=== PATIENT | female | born 1990 | race American Indian/Alaskan Native ===

== ENCOUNTER 2017-08-03 18:31 | Emergency (ER) | payer SELFPAY ==
[2017-08-03 18:43] VITALS: BP 136/89
[2017-08-03 19:14] LABS: Basophils % (Auto) 0.5 % (0.0-1.8); Eosinophils % (Auto) 0.9 % (0.0-4.3); Hematocrit 35.6 % (30.3-42.9); Hemoglobin 12.2 gm/dl (10.1-14.3); Mean Corpuscular HGB Conc 34 % (30-34); Mean Corpuscular Hemoglobin 33 pg (28-32); Mean Corpuscular Volume 98 fl (79-97); Platelet Count 203 K/mm3 (140-440); Red Blood Count 3.65 M/mm3 (3.65-5.03); Red Cell Distribution Width 13.1 % (13.2-15.2)
[2017-08-03 19:27] LABS: INR 0.95 (0.87-1.13)
[2017-08-03 19:36] LABS: Alanine Aminotransferase 9 units/L (7-56); Albumin 4.1 g/dL (3.9-5); Albumin/Globulin Ratio 1.2 %; Anion Gap 14 mmol/L; BUN/Creatinine Ratio 18; Blood Urea Nitrogen 16 mg/dL (7-17); Carbon Dioxide 28 mmol/L (22-30); Chloride 100.8 mmol/L (98-107); Glucose 86 mg/dL (65-100); Potassium 3.7 mmol/L (3.6-5.0); Sodium 139 mmol/L (137-145); Total Protein 7.4 g/dL (6.3-8.2)
[2017-08-03 20:48] LABS: Alkaline Phosphatase 72 units/L (35-129)
== END 2017-08-03 19:30 | disposition left against medical advice (07) ==
LOC: ED 18:31
DX: M79.673 Pain in unspecified foot (principal); Z53.21 Procedure and treatment not carried out due to patient leaving prior to being seen by health care provider
CPT/HCPCS: 36415; 80053; 84484; 84703; 85025; 85610

== ENCOUNTER 2017-09-09 12:31 | Emergency (ER) | payer MEDICAID ==
[2017-09-09 12:55] VITALS: BP 165/113
--- NOTE | 2017-09-09 13:07 | Emergency Department Report ---
Chief Complaint: Abdominal Pain Stated Complaint: ANXIETY - HPI History of Present Illness: This is a 27-year-old female nontoxic, well nourished in appearance, no acute signs of distress presents to the ED with c/o of pelvic pain, dizziness, and weakness x5 months. Patient deneis following up with a PCP. Patient describes pain as aching with level of 8/10. Denies any vaginal bleeding, chest pain, shortness of breathe, fever, chills, depression, headache, stiff neck, vaginal discharge. - Exam Vital Signs: Vital Signs 09/09/17 12:47 Temperature 97 F L Pulse Rate 79 Blood Pressure 165/113 O2 Sat by Pulse 100 Oximetry Physical Exam: GENERAL: The patient is a well-developed, well-nourished female in no apparent distress. Patient is alert and acting appropriately for age. Alert and oriented 3, no apparent distress, normal gait, atraumatic. ABDOMEN: Soft, nontender, and nondistended. Positive bowel sounds. No hepatosplenomegaly was noted. No guarding or rebound tenderness, negative epigastric bruit. Negative psoas sign, negative rivera sign, negative McBurneys sign EXTREMITIES: Without any cyanosis, clubbing, rash, lesions or edema. Peripheral pulses intact. Capillary refill less than 2 seconds. Full range of motion bilaterally. NEUROLOGIC: Cranial nerves II through XII are grossly intact. Alert and oriented x 3. Normal gait. Symmetrical strength and sensation. Reflexes 2+ throughout. Cerebellar testing normal. GCS score of 15. PSYCHIATRIC: Flat affect with no suicidal or homicidal ideations. MSE screening note: Focused history and physical exam performed. Due to findings the following was ordered: 1- This initial assessment/diagnostic orders/clinical plan/ treatment(s) is/are subject to change based on pt's health status, clinical progression and re- assessment by fellow clinical providers in the ED. Further treatment and workup at subsequent clinical provers discretion. Patient/guardians urged not to elope from ED as their condition may be serious if not clinically assessed and managed. 2-CBC, CMP, lipase, amylase, UA, 3-EtOH/urine drug panel ED Disposition for MSE Condition: Stable Instructions: Abdominal Pain (ED)
[2017-09-09 13:25] LABS: Basophils % (Auto) 0.5 % (0.0-1.8); Eosinophils % (Auto) 0.6 % (0.0-4.3); Hematocrit 39.8 % (30.3-42.9); Hemoglobin 13.2 gm/dl (10.1-14.3); Mean Corpuscular HGB Conc 33 % (30-34); Mean Corpuscular Hemoglobin 33 pg (28-32); Mean Corpuscular Volume 99 fl (79-97); Platelet Count 208 K/mm3 (140-440); Red Blood Count 4.03 M/mm3 (3.65-5.03); Red Cell Distribution Width 12.8 % (13.2-15.2); White Blood Count 8.3 K/mm3 (4.5-11.0)
[2017-09-09 13:43] LABS: Alanine Aminotransferase 11 units/L (7-56); Albumin 4.6 g/dL (3.9-5); Alkaline Phosphatase 70 units/L (35-129); Anion Gap 15 mmol/L; BUN/Creatinine Ratio 15; Blood Urea Nitrogen 9 mg/dL (7-17); Calcium 9.3 mg/dL (8.4-10.2); Carbon Dioxide 27 mmol/L (22-30); Chloride 98.6 mmol/L (98-107); Glucose 83 mg/dL (65-100); Potassium 3.5 mmol/L (3.6-5.0); Sodium 137 mmol/L (137-145); Total Protein 9.3 g/dL (6.3-8.2)
== END 2017-09-09 21:40 | disposition left against medical advice (07) ==
LOC: ED 12:31
DX: F41.9 Anxiety disorder, unspecified (principal); Z53.21 Procedure and treatment not carried out due to patient leaving prior to being seen by health care provider
CPT/HCPCS: 36415; 80053; 84703; 85025; G0480; 80320

== ENCOUNTER 2018-02-26 14:09 | Emergency (ER) | payer MEDICAID ==
[2018-02-26 14:28] VITALS: BP 127/90
[2018-02-26] MEDS ORDERED: DECADRON IV ONE (16:58)
[2018-02-26] MEDS ORDERED: ATARAX PO ONE (16:58)
--- NOTE | 2018-02-26 16:58 | Emergency Department Report ---
ED Rash HPI - HPI Chief Complaint: Skin Rash Stated Complaint: RASH ON CHEST/ARM Time Seen by Provider: 02/26/18 16:38 Duration: 2 weeks Location: Chest, Upper Extremities Suspected Cause: Unknown Rash Symptoms: Yes Itching, Yes Peeling, No Facial Swelling, No Tongue/Oral Swelling, No Breathing Difficulties, No Choking Sensation, No Wheezing/Dyspnea, No Blistering, No Fever, No Lightheaded, No Malaise, No Myalgias Severity: moderate Other History: 27-year-old female states that she's been having this itching rash for the past 2 weeks. Patient states that prior studies smaller but it spread from her chest and also on her arm. Patient states that the rash is itchy. 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 Patient states she does not recall coming into contact or eating any foreign or unknown. She states she is not allergic to any medication and is currently not on any medications. Patient states that her penicillin allergy is not sure allergy as she has had amoxicillin a couple of times with no reaction. ED Review of Systems ROS: Stated complaint: RASH ON CHEST/ARM Other details as noted in HPI Constitutional: denies: chills, fever Eyes: denies: eye pain, eye discharge, vision change ENT: denies: ear pain, throat pain Respiratory: denies: cough, shortness of breath, wheezing Cardiovascular: denies: chest pain, palpitations Endocrine: no symptoms reported Gastrointestinal: denies: abdominal pain, nausea, diarrhea Genitourinary: denies: urgency, dysuria, discharge Musculoskeletal: denies: back pain, joint swelling, arthralgia Skin: rash, pruritus. 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 She has this as much as twice a year. She states that she has genital herpes as well. She has never been to a neurologist. She states he's never had a CAT scan of her head. History of boils I am assuming this is MRSA no current boils per the patient. - Surgical History Past Surgical History?: No - Social History Smoking Status: Current Every Day Smoker Substance Use Type: None, Marijuana - Medications Home Medications: Home Medications Medication Instructions Recorded Confirmed Last Taken Type ALBUTEROL Inhaler [Proair] 2 puff IH QID PRN #1 inhalation 09/26/16 Unknown Rx Azithromycin [Zithromax Z-CAROL] 250 mg PO DAILY #6 tab 09/26/16 Unknown Rx Ibuprofen [Motrin] 600 mg PO Q8H PRN #15 tablet 09/26/16 Unknown Rx guaiFENesin DM [Robitussin Dm] 10 ml PO Q6HR PRN #200 ml 09/26/16 Unknown Rx predniSONE [Deltasone] 50 mg PO QDAY #5 tablet 09/26/16 Unknown Rx Cephalexin [Keflex] 500 mg PO Q12HR #10 cap 02/26/18 Unknown Rx Hydrocortisone 0.5% (Nf) 1 applicatio TP TID #1 tube 02/26/18 Unknown Rx [Hydrocortisone 0.5% OINT] hydrOXYzine HCL [Atarax] 25 mg PO QHS #20 tablet 02/26/18 Unknown Rx Rash Exam - Exam General: Vital signs noted. No distress. Alert and acting appropriately. HEENT: No Periorbital Edema, No Conjuctival Injection, No Chemosis, No Perioral Edema, No Tongue Edema, No Uvular Edema, No Compromised Airway, No Drooling Lungs: Yes Good Air Exchange, No Wheezes, No Ronchi, No Stridor, No Cough, No Labored Respirations, No Retractions, No Use of Accessory Muscles, No Other Abnormal Lung Sounds Heart: Yes Regular, No Murmur Front/Back of Body, Lg (Color): 1 - multiple, scattered, erythematous, generalized maculopaular rash with some scabs from itching, 2 - multiple, scattered, erythematous, generalized maculopaular rash with some scabs from itching, no swelling Skin: Yes Urticarial Rash, Yes Maculopapular Rash, Yes Erythema, Yes Other ( scabbing from itching), No Morbilliform rash, No Bulla(e), No Excoriations, No Weeping, No Tenderness, No Edema, No Encrustations Other: Positive: Abdomen Normal, Neurologic Normal, Musculoskeletal Normal ED Course Vital Signs 02/26/18 14:24 Temperature 98.7 F Pulse Rate 78 Respiratory 18 Rate Blood Pressure 127/90 O2 Sat by Pulse 98 Oximetry ED Medical Decision Making - Medical Decision Making 27-year-old female presents with rash ED course: Rash could be a contact or allergic. Due to scratching a scab and will cover with Keflex antibiotics. Patient received Atarax and Decadron ED. Discussed with patient to follow up with primary care physici 3-5 days. Discussed his symptoms is not resolved t see licensed esthetician as referred. Patient is in no acute or respiratory distress. Critical care attestation.: If time is entered above; I have spent that time in minutes in the direct care of this critically ill patient, excluding procedure time. ED Disposition Clinical Impression: Dermatitis, Rash and nonspecific skin eruption Disposition: - TO HOME OR SELFCARE Is pt being admited?: No Does the pt Need Aspirin: No Condition: Stable Instructions: Acute Rash (ED), Urticaria (ED), Poison Celena (ED), Contact Dermatitis (ED) Additional Instructions: Make sure to follow up with the primary care physician as discussed. Follow-up with licensed esthetician if symptoms persist after treatment Take all your medications as you've been prescribed. If you have any worsening symptoms or develop new symptoms please return to ED immediately. Prescriptions: hydrOXYzine HCL [Atarax] 25 mg PO QHS #20 tablet Cephalexin [Keflex] 500 mg PO Q12HR #10 cap Hydrocortisone 0.5% (Nf) [Hydrocortisone 0.5% OINT] 1 applicatio TP TID #1 tube Referrals: PRIMARY CAREMD [Primary Care Provider] - 3-5 Days ELAINE PEACE MD [Staff Physician] - 3-5 Days [facility] [Outside] - 3-5 Days [facility] [Outside] - 3-5 Days Forms: Accompanied Note, Work/School Release Form(ED) Time of Disposition: 17:21
== END 2018-02-26 18:01 | disposition home or self-care (01) ==
LOC: ED 14:09
DX: L30.9 Dermatitis, unspecified (principal); I10 Essential (primary) hypertension; F17.200 Nicotine dependence, unspecified, uncomplicated; F12.10 Cannabis abuse, uncomplicated
CPT/HCPCS: 96374; 99282; J1100

== ENCOUNTER 2018-12-23 17:06 | Outpatient (CLI) | payer MEDICAID ==
[2018-12-23 17:29] VITALS: BP 113/59
[2018-12-23] MEDS ORDERED: CELESTONE SOLUSPAN IM SCH (18:00)
--- NOTE | 2018-12-23 21:56 | Ultrasound Report ---
PROCEDURE: US OB BPP WO NON-STRESS TECHNIQUE: PROCEDURE: US OB BPP WO NON-STRESS HISTORY: Variable Decel COMPARISONS: None . FINDINGS: FETUS Amniotic fluid volume Normal-score 2. At least one vertical pocket >2 cm or more in vertical axis . breathing: Normal-score 2 . movement: Normal-score 2 . tone: Normal-score 2 . Score: 8 of 8 . IMPRESSION: Normal biophysical profile . This document is electronically signed by Kehined Morales MD., December 23 2018 09:55:07 PM ET
--- NOTE | 2018-12-23 22:03 | Ultrasound Report ---
PROCEDURE: US OB LIMITED TECHNIQUE: Real-time limited sonographic examination was performed for evaluation of for each fetus with image documentation (1 or more fetuses). HISTORY: Variable Decel COMPARISONS: None . FINDINGS: There is a single intrauterine gestation with a heart rate of 143 bpm. Presentation is cephalic . Amniotic fluid index is 24.6 cm. IMPRESSION: Amniotic fluid index is at the upper limit of normal. This document is electronically signed by Kehinde Morales MD., December 23 2018 10:01:37 PM ET
== END 2018-12-23 19:56 | disposition home or self-care (01) ==
LOC: TRG 17:06
PROVIDERS: ATTEND Obstetrics & Gynecology
DX: O47.03 False labor before 37 completed weeks of gestation, third trimester (principal); O99.343 Other mental disorders complicating pregnancy, third trimester; F41.9 Anxiety disorder, unspecified; O99.323 Drug use complicating pregnancy, third trimester; F11.90 Opioid use, unspecified, uncomplicated; F12.90 Cannabis use, unspecified, uncomplicated; O99.333 Smoking (tobacco) complicating pregnancy, third trimester; F17.200 Nicotine dependence, unspecified, uncomplicated; Z3A.30 30 weeks gestation of pregnancy
CPT/HCPCS: 59025; 76815; 76819; 96372; J0702

== ENCOUNTER 2018-12-24 18:13 | Outpatient (CLI) | payer MEDICAID ==
[2018-12-24] MEDS ORDERED: CELESTONE SOLUSPAN IM ONE ×2 (18:31)
[2018-12-24] MEDS ORDERED: PITOCin/NS 30 UNIT/500ML 30,000 MILLIUNITS/500 ML BAG IV ONE (18:41)
== END 2018-12-24 18:50 | disposition home or self-care (01) ==
LOC: TRG 18:13
PROVIDERS: ATTEND Obstetrics & Gynecology
DX: O47.03 False labor before 37 completed weeks of gestation, third trimester (principal); O99.323 Drug use complicating pregnancy, third trimester; F11.90 Opioid use, unspecified, uncomplicated; F14.90 Cocaine use, unspecified, uncomplicated; F12.90 Cannabis use, unspecified, uncomplicated; O99.343 Other mental disorders complicating pregnancy, third trimester; F41.9 Anxiety disorder, unspecified; O99.333 Smoking (tobacco) complicating pregnancy, third trimester; F17.200 Nicotine dependence, unspecified, uncomplicated; Z3A.30 30 weeks gestation of pregnancy
CPT/HCPCS: 96372; J0702; J2590

== ENCOUNTER 2019-02-15 21:59 | Outpatient (CLI) | payer MEDICAID ==
[2019-02-15 22:22] VITALS: BP 135/78
[2019-02-15 22:51] LABS: Bacteria,Urine 1+ /HPF (Negative); Bilirubin,Urine NEG (Negative); Blood,Urine MOD (Negative); Color,Urine Amber (Yellow); Mucus,Urine 3+ /HPF
== END 2019-02-16 | disposition home or self-care (01) ==
LOC: TRG 21:59
PROVIDERS: ATTEND Obstetrics & Gynecology
DX: O47.1 False labor at or after 37 completed weeks of gestation (principal); Z3A.38 38 weeks gestation of pregnancy
CPT/HCPCS: 59025; 81001

== ENCOUNTER 2019-02-22 10:00 | Inpatient (IN) | payer MEDICAID ==
--- NOTE | 2019-02-22 13:44 | Ultrasound Report ---
ULTRASOUND OB LIMITED History: Check fluids Technique: Transabdominal ultrasound with Doppler interrogation. Gestation: Single Position: Cephalic Amniotic Fluid: Normal [place] = 11.8 cm Heart Rate: 130 BPM
[2019-02-22] MEDS ORDERED: MINERAL OIL PO PRN (14:32)
[2019-02-22] MEDS ORDERED: BRETHINE SUB-Q PRN (14:32)
[2019-02-22] MEDS ORDERED: BRETHINE IVP PRN (14:32)
[2019-02-22] MEDS ORDERED: LACTATED RINGERS 1,000 ML IV SCH (15:00)
[2019-02-22] MEDS ORDERED: PITOCin/NS 30 UNIT/500ML 30 UNITS/500 ML BAG IV SCH (15:00)
[2019-02-22] MEDS ORDERED: XYLOCAINE 2% INFILTRATI ONE (15:32)
[2019-02-22 15:40] LABS: Bilirubin,Urine NEG (Negative); Blood,Urine NEG (Negative); Color,Urine Yellow (Yellow); Mucus,Urine FEW /HPF; Protein,Urine <15 mg/dL mg/dL (Negative); Urobilinogen,Urine < 2.0 mg/dL (<2.0)
[2019-02-22 16:18] LABS: Hematocrit 31.1 % (30.3-42.9); Hemoglobin 10.9 gm/dl (10.1-14.3); Mean Corpuscular HGB Conc 35 % (30-34); Mean Corpuscular Volume 100 fl (79-97); Platelet Count 241 K/mm3 (140-440); Red Blood Count 3.12 M/mm3 (3.65-5.03); Red Cell Distribution Width 13.9 % (13.2-15.2)
[2019-02-22] MEDS: STADOL IV PRN ×2 (17:06→19:29)
[2019-02-22 17:11] LABS: Amphetamine Screen,Urine PRESUMPTIVE NEGATIVE; Benzodiazepines Screen,Urine PRESUMPTIVE NEGATIVE; Cannabinoid Screen,Urine PRESUMPTIVE NEGATIVE; Cocaine Screen,Urine PRESUMPTIVE NEGATIVE; Methadone Screen,Urine PRESUMPTIVE NEGATIVE; Opiate Screen,Urine PRESUMPTIVE NEGATIVE
[2019-02-22] MEDS ORDERED: MARCAINE 0.25% INFILTRATI ONE (17:46)
[2019-02-22] MEDS ORDERED: NARCAN 2 MG/2 ML IV PRN (17:47)
[2019-02-22] MEDS ORDERED: fentaNYL-BUPIV 2 MCG/ML-0.125% 200 MCG/100 ML BAG EPIDURAL SCH (18:00)
--- NOTE | 2019-02-22 20:37 | History and Physical Report ---
History of Present Illness Date of examination: 02/22/19 Date of admission: 02/22/19 14:53 Chief complaint: leakage of fluid History of present illness: 28y/o @ 39+0 weeks presents with complaint of leakage of fluid. The patient was adament that her amniotic fluid leaking. The patient is a transfer of care 25 weeks. Her course is complicated by substance abuse of alcohol and cocaine. Her medical history is significant for cardiomegaly. Most recent echocardiogram demonstrated an EF of 60-65% and the left ventricular cavity is normal. Patient is GBS negative. Past History Past Medical History: other (cardiomegaly; depression) Past Surgical History: D&C Social history: single, alcohol abuse, other - Obstetrical History Expected Date of Delivery: 03/01/19 Actual Gestation: 39 Week(s) 0 Day(s) : 6 Para: 2 Hx # Term Pregnancies: 2 Number of Pregnancies: 0 Spontaneous Abortions: 2 Induced : 1 Number of Living Children: 2 Medications and Allergies Allergies Allergy/AdvReac Type Severity Reaction Status Date / Time Penicillins Allergy Intermediate Rash Verified 07/25/18 14:01 amoxicillin Allergy Rash Verified 02/15/19 22:09 Home Medications Medication Instructions Recorded Confirmed Last Taken Type ALBUTEROL Inhaler (OR & NICU) 2 puff IH QID PRN #1 inhalation 09/26/16 Unknown Rx [Proair] Azithromycin [Zithromax Z-CAROL] 250 mg PO DAILY #6 tab 09/26/16 Unknown Rx Ibuprofen [Motrin] 600 mg PO Q8H PRN #15 tablet 09/26/16 Unknown Rx guaiFENesin DM [Robitussin Dm] 10 ml PO Q6HR PRN #200 ml 09/26/16 Unknown Rx predniSONE [Deltasone] 50 mg PO QDAY #5 tablet 09/26/16 Unknown Rx Hydrocortisone 0.5% (Nf) 1 applicatio TP TID #1 tube 02/26/18 Unknown Rx [Hydrocortisone 0.5% OINT] cephALEXin [Keflex] 500 mg PO Q12HR #10 cap 02/26/18 Unknown Rx hydrOXYzine HCL [Atarax] 25 mg PO QHS #20 tablet 02/26/18 Unknown Rx Metoclopramide [Reglan] 10 mg PO TID PRN #30 tab 10/13/18 Unknown Rx Nitrofurantoin Monohyd/M-Cryst 100 mg PO BID #14 capsule 07/25/18 Unknown Rx [Macrobid 100 mg Capsule] Vit Calc,Iron,Folic 1 each PO QDAY #30 tablet 07/25/18 Unknown Rx [ Vitamins] Active Meds: Active Medications Butorphanol Tartrate (Stadol) 2 mg IV Q2H PRN PRN Reason: Pain , Severe (7-10) Last Admin: 02/22/19 19:29 Dose: 2 mg Documented by: Ephedrine Sulfate (Ephedrine Sulfate) 10 mg IV Q2M PRN PRN Reason: Hypotension Oxytocin/Sodium Chloride (Pitocin/Ns 20 Unit/1000ml Drip) 20 units in 1,000 mls @ 125 mls/hr IV DIRECT JOHN Oxytocin/Sodium Chloride (Pitocin/Ns 30 Unit/500ml) 30 units in 500 mls @ 4 mls/hr IV TITR JOHN; Protocol Lactated Ringer's (Lactated Ringers) 1,000 mls @ 125 mls/hr IV DIRECT JOHN Last Admin: 02/22/19 17:05 Dose: 125 mls/hr Documented by: Fentanyl/Bupivacaine/Sodium Chlor (Fentanyl-Bupiv 2 Mcg/Ml-0.125%) 200 mcg in 100 mls @ 12 mls/hr EPIDURAL TITR JOHN; Protocol Mineral Oil (Mineral Oil) 30 ml PO QHS PRN PRN Reason: Constipation Naloxone HCl (Narcan 2 Mg/2 Ml) 0.2 mg IV Q5M PRN PRN Reason: Respiratory sedation Terbutaline Sulfate (Brethine) 0.25 mg SUB-Q ONCE PRN PRN Reason: Hyperstimulation/Hypertonicity Terbutaline Sulfate (Brethine) 0.25 mg IVP ONCE PRN PRN Reason: Hyperstimulation/Hypertonicity Review of Systems All systems: negative Genitourinary: leakage of fluid, contractions - Vital Signs Vital signs: Vital Signs Pulse BP Pulse Ox 75 113/70 99 02/22/19 12:31 02/22/19 12:31 02/22/19 12:31 Temp Pulse Resp BP Pulse Ox 97.6 F 90 18 136/86 100 02/22/19 19:52 02/22/19 20:30 02/22/19 19:52 02/22/19 20:30 02/22/19 20:30 - Physical Exam Breasts: Positive: deferred Cardiovascular: Regular rate Lungs: Positive: Clear to auscultation Results Result Diagrams: 02/22/19 15:59 Abnormal lab results 02/22/19 Range/Units 15:59 RBC 3.12 L (3.65-5.03) M/mm3 MCV 100 H (79-97) fl MCH 35 H (28-32) pg MCHC 35 H (30-34) % All other labs normal. Assessment and Plan - Patient Problems (1) Spontaneous rupture of amniotic membranes Current Visit: Yes Status: Acute Plan to address problem: admit to L&D for augmentation (2) Term Current Visit: Yes Status: Acute
[2019-02-22] MEDS ORDERED: XYLOCAINE 2%/ EPI 1:200,000 INFILTRATI ONE (21:33)
[2019-02-22] MEDS ORDERED: SODIUM CHLORIDE FLUSH SYRINGE 10 ML IV PRN (23:45)
--- NOTE | 2019-02-22 23:50 | Procedure Note ---
OB Delivery Note - Delivery Date of Delivery: 02/22/19 Surgeon: MAKAYLA GUEVARA Estimated blood loss: other (150ml) - Vaginal Delivery presentation: vertex Delivery position: OA Delivery monitor: external FHT Route of delivery: Delivery placenta: spontaneous Delivery cord: 3 umbilical vessels Episiotomy: none Delivery laceration: none Anesthesia: epidural Delivery comments: The patient progressed to complete complete +2 and began pushing. The patient delivered a liveborn female infant with Apgars of 8 and 9 weight 6 lbs. 4 oz. The delivery time was 2338 with delivery of the placenta at 2340. After delivery of the head, the shoulders delivered without difficulty. Infant was then bulb suctioned. The cord was clamped and cut 2 and the infant was placed on the warmer. The placenta delivered spontaneously intact with a three-vessel cord. Estimated blood loss of 150 mL - Infant A at 1 minute: 8 at 5 minutes: 9 Gender: Female (weight 6 lbs. 4 oz.)
[2019-02-22] MEDS ORDERED: LANSINOH TP PRN (23:51)
[2019-02-22] MEDS ORDERED: TYLENOL PO PRN (23:51)
[2019-02-22] MEDS ORDERED: MILK OF MAGNESIA PO PRN (23:51)
[2019-02-22] MEDS ORDERED: DULCOLAX PR PRN (23:51)
[2019-02-22] MEDS ORDERED: BENADRYL PO PRN (23:51)
[2019-02-22] MEDS ORDERED: ZOFRAN IV PRN (23:51)
[2019-02-22] MEDS ORDERED: PHENERGAN PO PRN (23:51)
[2019-02-22] MEDS ORDERED: TUCKS PAD TP PRN (23:51)
[2019-02-22] MEDS: PITOCin/NS 20 UNIT/1000ML DRIP 20 UNITS/1,000 ML BAG IV SCH (23:58)
[2019-02-23] MEDS: NORCO 5/325 PO PRN ×3 (01:36→20:02)
[2019-02-23] MEDS: PITOCin/NS 20 UNIT/1000ML DRIP 20 UNITS/1,000 ML BAG IV SCH (01:42)
[2019-02-23] MEDS: IBUPROFEN PO SCH ×4 (05:31→20:02)
[2019-02-23 12:19] LABS: Hematocrit 33.1 % (30.3-42.9); Hemoglobin 11.2 gm/dl (10.1-14.3)
--- NOTE | 2019-02-23 18:07 | Progress Note ---
Assessment and Plan - Patient Problems (1) Spontaneous rupture of amniotic membranes Current Visit: Yes Status: Acute Plan to address problem: doing well routine care (2) Term Current Visit: Yes Status: Acute Subjective - Subjective Date of service: 02/23/19 Interval history: Patient states pain is controlled. Lochia is decreasing. No significant complaints Patient reports: appetite normal, voiding normally, pain well controlled [place]: doing well Objective - Vital Signs Latest vital signs: Vital Signs Temp Pulse Resp BP BP Pulse Ox 02/23/19 09:35 20 02/23/19 08:52 97.6 F 20 106/76 02/23/19 04:30 98.6 F 88 18 114/73 02/23/19 02:36 18 02/23/19 02:14 99.2 F 89 18 122/75 99 02/23/19 01:36 18 02/23/19 00:37 92 H 165/114 02/23/19 00:22 102 H 125/84 02/23/19 00:06 102 H 100 02/23/19 00:05 97.9 F 103 H 18 122/86 99 02/22/19 23:56 99 H 100 02/22/19 23:51 118 H 99 02/22/19 23:38 130 H 122/86 02/22/19 23:30 77 59 L 02/22/19 23:29 99 H 94 02/22/19 23:25 95 H 48 L 02/22/19 23:21 74 90 02/22/19 23:20 93 H 96 02/22/19 23:15 96 H 99 02/22/19 23:10 97 H 98 02/22/19 23:08 85 115/58 02/22/19 23:05 89 99 02/22/19 23:00 65 90 02/22/19 22:55 79 84 02/22/19 22:50 85 95 02/22/19 22:48 27 L 86 02/22/19 22:45 94 H 18 99 02/22/19 22:40 88 99 02/22/19 22:39 90 96/50 02/22/19 22:35 85 100 02/22/19 22:30 84 99 02/22/19 22:25 89 99 02/22/19 22:20 94 H 99 02/22/19 22:15 91 H 100 02/22/19 22:10 92 H 100 02/22/19 22:05 100 H 112/68 100 02/22/19 22:00 106 H 100 02/22/19 21:55 92 H 99 02/22/19 21:50 102 H 100 02/22/19 21:48 102 H 130/61 02/22/19 21:45 105 H 99 02/22/19 21:44 89 94 02/22/19 21:40 110 H 0 L 02/22/19 21:35 93 H 100 02/22/19 21:33 101 H 128/88 02/22/19 21:30 95 H 100 02/22/19 21:25 86 100 02/22/19 21:20 107 H 98 02/22/19 21:18 89 137/82 02/22/19 21:15 84 100 02/22/19 21:10 94 H 100 02/22/19 21:05 88 100 02/22/19 21:03 99 H 136/81 02/22/19 21:00 93 H 100 02/22/19 20:55 88 99 02/22/19 20:50 104 H 98 02/22/19 20:48 80 130/74 02/22/19 20:45 86 98 02/22/19 20:40 93 H 93 02/22/19 20:35 90 100 02/22/19 20:32 90 139/81 02/22/19 20:30 90 136/86 100 02/22/19 20:29 18 02/22/19 20:28 95 H 134/86 02/22/19 20:26 94 H 132/83 02/22/19 20:25 98 H 100 02/22/19 20:24 88 136/84 02/22/19 20:22 88 149/88 02/22/19 20:20 97 H 100 02/22/19 20:18 82 134/88 02/22/19 20:16 76 163/85 02/22/19 20:14 68 148/65 02/22/19 20:11 88 149/91 02/22/19 20:08 89 142/93 02/22/19 20:07 96 H 99 02/22/19 19:58 100 H 94 02/22/19 19:55 85 164/107 02/22/19 19:54 81 99 02/22/19 19:52 97.6 F 95 H 18 164/104 95 02/22/19 19:49 88 100 02/22/19 19:47 79 80 L 02/22/19 19:44 83 99 02/22/19 19:39 84 100 02/22/19 19:34 82 99 02/22/19 19:30 81 93 02/22/19 19:29 82 18 92 02/22/19 19:24 96 H 99 02/22/19 18:30 98.2 F Intake and Output 02/23/19 02/23/19 02/23/19 06:59 14:59 22:59 Intake Total 216.667 Output Total 500 400 Balance -283.333 -400 Intake: IV 216.667 PITOCin/NS 20 UNIT/1000ML 216.667 DRIP 20 units In 1,000 ml @ 125 mls/hr IV DIRECT JOHN Rx#:[id number] Output: Urine 500 400 Void 500 400 Other: Total, Output Amount 500 400 # Voids Void 1 1 Estimated Blood Loss 150 - Exam Uterus: Present: normal, firm
[2019-02-24] MEDS: NORCO 5/325 PO PRN ×3 (02:09→14:13)
[2019-02-24] MEDS: IBUPROFEN PO SCH ×3 (02:10→14:13)
[2019-02-24 16:39] VITALS: BP 131/88
--- NOTE | 2019-02-24 17:31 | Progress Note ---
Assessment and Plan A: PPD#2 s/p P: Routine care. Discharge today with follow up in [address] Castorena. Subjective - Subjective Date of service: 02/24/19 Principal diagnosis: s/p at term Interval history: Pt without complaints. Patient reports: appetite normal, voiding normally, ambulating normally : doing well Objective - Vital Signs Latest vital signs: Vital Signs Temp Pulse Resp BP BP Pulse Ox 02/24/19 16:16 97.6 F 75 16 131/88 99 02/24/19 08:06 98.3 F 77 18 134/89 100 02/24/19 01:29 98.0 F 76 18 110/66 97 Intake and Output 02/24/19 02/24/19 02/24/19 06:59 14:59 22:59 Intake Total 480 Balance 480 Intake: Oral 480 Other: Total, Intake Amount 120 # Voids Void 1 - Exam Breasts: Present: deferred Cardiovascular: Present: Regular rate Lungs: Present: Clear to auscultation Abdomen: Present: soft Uterus: Present: fundal height below umbilicus Extremities: Present: normal
--- NOTE | 2019-02-24 17:36 | Discharge Summary ---
Providers - Providers Date of Admission: 02/22/19 14:53 Date of discharge: 02/24/19 Attending physician: MAKAYLA GUEVARA Primary care physician: MAKAYLA GUEVARA Hospitalization Reason for admission: rupture of membranes Delivery: Procedure details: Please see delivery note. Episiotomy: none Laceration: none complications: none Discharge diagnosis: IUP at term delivered baby: female Hospital course: course uneventful. Condition at discharge: Stable Disposition: DC-01 TO HOME OR SELFCARE - Discharge Diagnoses (1) Obesity Status: Acute Qualifiers: Obesity type: unspecified obesity type Obesity classification: unspecified obesity classification Serious obesity comorbidity presence: unspecified whether serious comorbidity present Qualified Code(s): E66.9 - Obesity, unspecified (2) Spontaneous rupture of amniotic membranes Status: Acute (3) Term Status: Acute Plan - Discharge Medications Prescriptions: Ibuprofen [Motrin] 800 mg PO Q8HR PRN #30 tablet PRN Reason: Pain, Moderate (4-6) HYDROcodone/APAP 5-325 [Gypsy 5/325] 1 each PO Q6HR PRN #20 tablet PRN Reason: Pain - Provider Discharge Summary Activity: routine, no sex for 6 weeks, no heavy lifting 4 weeks, no strenuous exercise Diet: routine Instructions: routine Additional instructions: [] Smoking cessation referral if applicable(refer to patient education folder for contact #) [] Refer to [facility] Booklet Call your doctor immediately for: * Fever > 100.5 * Heavy vaginal bleeding ( >1 pad per hour) * Severe persistent headache * Shortness of breath * Reddened, hot, painful area to leg or breast * Drainage or odor from incision. * Keep incision clean and dry at all times and follow doctor's instructions regarding bathing/showering - Follow up plan Follow up: KOREY CERDA MD [Staff Physician] - 03/22/19 (Please call to schedule appt )
== END 2019-02-24 19:15 | disposition home or self-care (01) | DRG 775 ==
LOC: TRG 10:00 → LD 14:53 → OB 02-23 02:12
PROVIDERS: ADMIT Obstetrics & Gynecology; ATTEND Obstetrics & Gynecology
PROC: 10E0XZZ Delivery of Products of Conception, External Approach (ICD-10-PCS; principal; 2019-02-22)
PROC: 3E0R3BZ Introduction of Anesthetic Agent into Spinal Canal, Percutaneous Approach (ICD-10-PCS; 2019-02-22)
PROC: 00HU33Z Insertion of Infusion Device into Spinal Canal, Percutaneous Approach (ICD-10-PCS; 2019-02-22)
DX: O99.344 Other mental disorders complicating childbirth (principal); O99.214 Obesity complicating childbirth; E66.9 Obesity, unspecified; F32.9 Major depressive disorder, single episode, unspecified; Z3A.39 39 weeks gestation of pregnancy; Z37.0 Single live birth; Z88.0 Allergy status to penicillin; Z88.1 Allergy status to other antibiotic agents; Z79.899 Other long term (current) drug therapy
CPT/HCPCS: 36415; 76815; 80307; 81001; 85014; 85018; 85027; 86850; 86900; 86901; G0378; J0595; J2590; J7120

== ENCOUNTER 2019-04-04 19:48 | Emergency (ER) | payer MEDICAID ==
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
[2019-04-04] MEDS ORDERED: TYLENOL PO ONE (23:35)
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
[2019-04-05 01:01] LABS: Basophils % (Auto) 0.4 % (0.0-1.8); Eosinophils # (Auto) 0.1 K/mm3 (0.0-0.4); Eosinophils % (Auto) 1.7 % (0.0-4.3); Hemoglobin 10.8 gm/dl (10.1-14.3); Lymphocytes # (Auto) 2.6 K/mm3 (1.2-5.4); Lymphocytes % (Auto) 41.3 % (13.4-35.0); Mean Corpuscular HGB Conc 34 % (30-34); Mean Corpuscular Volume 100 fl (79-97); Monocytes # (Auto) 0.7 K/mm3 (0.0-0.8); Monocytes % (Auto) 11.4 % (0.0-7.3); Platelet Count 247 K/mm3 (140-440); Red Cell Distribution Width 13.2 % (13.2-15.2)
[2019-04-05 01:22] LABS: Alanine Aminotransferase 8 units/L (7-56); Albumin 3.7 g/dL (3.9-5); BUN/Creatinine Ratio 23; Blood Urea Nitrogen 16 mg/dL (7-17); Calcium 8.9 mg/dL (8.4-10.2); Hemolysis Index 2
--- NOTE | 2019-04-05 01:37 | XRay Report ---
PROCEDURE: XR CHEST ROUTINE 2V TECHNIQUE: PA and lateral chest radiographs were obtained. HISTORY: chest pain COMPARISONS: None. FINDINGS: Heart: Normal. Mediastinum/Vessels: Normal. Lungs/Pleural space: Normal. Bony thorax: No acute osseous abnormality. IMPRESSION: Normal examination. This document is electronically signed by Kelli Tracey DO., April 05 2019 01:35:23 AM ET
[2019-04-05 05:06] VITALS: BP 132/77
== END 2019-04-05 11:43 | disposition home or self-care (01) ==
LOC: ED 19:48
DX: M54.42 Lumbago with sciatica, left side (principal); G51.0 Bell's palsy; F17.200 Nicotine dependence, unspecified, uncomplicated; Z79.899 Other long term (current) drug therapy; Z88.1 Allergy status to other antibiotic agents; Z88.0 Allergy status to penicillin
CPT/HCPCS: 36415; 71046; 80053; 83690; 85025

== ENCOUNTER 2019-10-19 13:54 | Emergency (ER) | payer MEDICAID ==
--- NOTE | 2019-10-19 15:45 | Emergency Department Report ---
Blank Doc - Documentation Documentation: 29 Y/O FEMALE OPTED TO BE SEEN AT ANOTHER FACILITY DID NOT WANT TO BE SEEN HERE. SHE WAS URGED TO STAY AND GIVE A HISTORY AND PHYSICAL BUT REFUSED. AAOX 3 ON PHONE DURING OUR BRIEF CONVERSATION ARRANGING TRANSPORTATION TO BE TAKEN TO ANOTHER FACILITY
[2019-10-19 15:49] VITALS: BP 144/96
== END 2019-10-19 15:43 | disposition left against medical advice (07) ==
LOC: ED 13:54
DX: R20.0 Anesthesia of skin (principal); Z53.21 Procedure and treatment not carried out due to patient leaving prior to being seen by health care provider

== ENCOUNTER 2021-01-08 04:25 | Emergency (ER) | payer SELFPAY ==
[2021-01-08 05:01] VITALS: BP 146/104
[2021-01-08 05:57] LABS: Basophils % (Auto) 0.4 % (0.0-1.8); Eosinophils # (Auto) 0.1 K/mm3 (0.0-0.4); Eosinophils % (Auto) 0.8 % (0.0-4.3); Hematocrit 37.6 % (30.3-42.9); Hemoglobin 12.9 gm/dl (10.1-14.3); Lymphocytes # (Auto) 1.7 K/mm3 (1.2-5.4); Lymphocytes % (Auto) 19.5 % (13.4-35.0); Mean Corpuscular HGB Conc 34 % (30-34); Mean Corpuscular Volume 100 fl (79-97); Monocytes # (Auto) 0.7 K/mm3 (0.0-0.8); Monocytes % (Auto) 8.1 % (0.0-7.3); Platelet Count 219 K/mm3 (140-440); Red Blood Count 3.76 M/mm3 (3.65-5.03); Red Cell Distribution Width 13.9 % (13.2-15.2)
[2021-01-08 06:19] LABS: Alanine Aminotransferase 9 units/L (7-56); BUN/Creatinine Ratio 15; Blood Urea Nitrogen 15 mg/dL (7-17); Calcium 8.8 mg/dL (8.4-10.2); Hemolysis Index 3
--- NOTE | 2021-01-08 06:31 | XRay Report ---
CHEST PA AND LATERAL VIEWS INDICATION: chest pain wit SOB. COMPARISON: 04/05/2019 FINDINGS: Support devices: None Heart: Normal and unchanged Lungs/Pleura: No acute pulmonary or pleural findings. IMPRESSION: 1. No active disease and no interval change. Signer Name: Adriel Garcia MD Signed: 01/08/2021 6:26 AM Workstation Name: [id number]
[2021-01-08] MEDS ORDERED: BENZONATATE 100 MG CAP PO ONE (07:26)
--- NOTE | 2021-01-08 07:29 | Emergency Department Report ---
ED General Adult HPI - General Chief complaint: Chest Pain Stated complaint: HUMBERTO/CHEST PAIN Time Seen by Provider: 01/08/21 07:25 Source: patient Mode of arrival: Ambulatory Limitations: No Limitations - History of Present Illness Initial comments: 30-year-old -Congolese female presents to the emergency room complaining of chest pain with shortness of breath nausea vomiting and cough for the last 2 days. Patient states that the chest pain is sharp and stabbing and was intermittent but now constant since she has been coughing. She states coughing makes it chest pain worse. She admits that she has had diarrhea. And right side pain. Her last Covid test was negative on November 02. She does admit to loss of smell and taste. Onset/Timin -: hour(s) Location: chest Radiation: non-radiation Severity scale (0 -10): 6 Quality: stabbing, sharp Consistency: intermittent Improves with: none Worsens with: movement, other (Coughing) Associated Symptoms: cough, nausea/vomiting, shortness of breath, other (Loss of taste and smell). denies: fever/chills - Related Data Previous Rx's Medication Instructions Recorded Last Taken Type Albuterol Mdi (or & Nicu Only) 2 puff IH QID PRN #1 inhalation 09/26/16 Unknown Rx [Proair] Azithromycin [Zithromax Z-CAROL] 250 mg PO DAILY #6 tab 09/26/16 Unknown Rx Ibuprofen [Motrin] 600 mg PO Q8H PRN #15 tablet 09/26/16 Unknown Rx guaiFENesin DM [Robitussin Dm] 10 ml PO Q6HR PRN #200 ml 09/26/16 Unknown Rx predniSONE [Deltasone] 50 mg PO QDAY #5 tablet 09/26/16 Unknown Rx Hydrocortisone 0.5% (Nf) 1 applicatio TP TID #1 tube 02/26/18 Unknown Rx [Hydrocortisone 0.5% OINT] cephALEXin [Keflex] 500 mg PO Q12HR #10 cap 02/26/18 Unknown Rx hydrOXYzine HCL [Atarax] 25 mg PO QHS #20 tablet 02/26/18 Unknown Rx Metoclopramide [Reglan] 10 mg PO TID PRN #30 tab 07/25/18 Unknown Rx Nitrofurantoin Monohyd/M-Cryst 100 mg PO BID #14 capsule 07/25/18 Unknown Rx [Macrobid 100 mg Capsule] Vit Calc,Iron,Folic 1 each PO QDAY #30 tablet 07/25/18 Unknown Rx [ Vitamins] HYDROcodone/APAP 5-325 [[place] 1 each PO Q6HR PRN #20 tablet 02/24/19 Unknown Rx 5/325] Ibuprofen [Motrin] 800 mg PO Q8HR PRN #30 tablet 02/24/19 Unknown Rx Acetaminophen [Mapap] 500 mg PO QID PRN #30 capsule 04/05/19 Unknown Rx Benzonatate [Tessalon Perles] 100 mg PO Q8HR PRN #15 capsule 01/08/21 Unknown Rx Allergies Allergy/AdvReac Type Severity Reaction Status Date / Time Penicillins Allergy Intermediate Rash Verified 07/25/18 14:01 amoxicillin Allergy Rash Verified 02/15/19 22:09 ED Review of Systems ROS: Stated complaint: HUMBERTO/CHEST PAIN Other details as noted in HPI Comment: All other systems reviewed and negative ED Past Medical Hx - Past Medical History Previous Medical History?: Yes Hx Hypertension: No Hx Congestive Heart Failure: No Hx Diabetes: No Hx Deep Vein Thrombosis: No Hx Renal Disease: No Hx Sickle Cell Disease: No Hx Seizures: No Hx Asthma: No Hx COPD: No Hx HIV: No Additional medical history: bells palsy, herpes - Surgical History Past Surgical History?: Yes Additional Surgical History: Ectopic pregancy with Fallopian tube removal - Social History Smoking Status: Current Every Day Smoker - Medications Home Medications: Home Medications Medication Instructions Recorded Confirmed Last Taken Type Albuterol Mdi (or & Nicu Only) 2 puff IH QID PRN #1 inhalation 09/26/16 Unknown Rx [Proair] Azithromycin [Zithromax Z-CAROL] 250 mg PO DAILY #6 tab 09/26/16 Unknown Rx Ibuprofen [Motrin] 600 mg PO Q8H PRN #15 tablet 09/26/16 Unknown Rx guaiFENesin DM [Robitussin Dm] 10 ml PO Q6HR PRN #200 ml 09/26/16 Unknown Rx predniSONE [Deltasone] 50 mg PO QDAY #5 tablet 09/26/16 Unknown Rx Hydrocortisone 0.5% (Nf) 1 applicatio TP TID #1 tube 02/26/18 Unknown Rx [Hydrocortisone 0.5% OINT] cephALEXin [Keflex] 500 mg PO Q12HR #10 cap 02/26/18 Unknown Rx hydrOXYzine HCL [Atarax] 25 mg PO QHS #20 tablet 02/26/18 Unknown Rx Metoclopramide [Reglan] 10 mg PO TID PRN #30 tab 07/25/18 Unknown Rx Nitrofurantoin Monohyd/M-Cryst 100 mg PO BID #14 capsule 07/25/18 Unknown Rx [Macrobid 100 mg Capsule] Vit Calc,Iron,Folic 1 each PO QDAY #30 tablet 07/25/18 Unknown Rx [ Vitamins] HYDROcodone/APAP 5-325 [[place] 1 each PO Q6HR PRN #20 tablet 02/24/19 Unknown Rx 5/325] Ibuprofen [Motrin] 800 mg PO Q8HR PRN #30 tablet 02/24/19 Unknown Rx Acetaminophen [Mapap] 500 mg PO QID PRN #30 capsule 04/05/19 Unknown Rx Benzonatate [Tessalon Perles] 100 mg PO Q8HR PRN #15 capsule 01/08/21 Unknown Rx ED Physical Exam - General Limitations: No Limitations General appearance: alert, in no apparent distress - Head Head exam: Present: atraumatic, normocephalic - Eye Eye exam: Present: normal appearance - ENT ENT exam: Present: normal exam, normal external ear exam - Respiratory Respiratory exam: Absent: respiratory distress, accessory muscle use, decreased breath sounds - Cardiovascular Cardiovascular Exam: Present: regular rate. Absent: systolic murmur, diastolic murmur, rubs, gallop - GI/Abdominal GI/Abdominal exam: Present: soft. Absent: distended, tenderness, guarding - Extremities Exam Extremities exam: Present: normal inspection, full ROM - Back Exam Back exam: Present: normal inspection, full ROM. Absent: tenderness - Neurological Exam Neurological exam: Present: alert, oriented X3 - Psychiatric Psychiatric exam: Present: normal affect, normal mood - Skin Skin exam: Present: warm, dry, intact, normal color. Absent: rash ED Course Vital Signs 01/08/21 04:55 Temperature 99.0 F Pulse Rate 82 Respiratory 18 Rate Blood Pressure 146/104 O2 Sat by Pulse 100 Oximetry ED Medical Decision Making - Lab Data Result diagrams: 01/08/21 05:14 01/08/21 05:14 - EKG Data Rate: normal - Radiology Data Radiology results: report reviewed [facility] [address] [place] [address] XRay Report Signed Patient: BI CORTEZ MR#: [id number] : 1990 Acct:[id number] Age/Sex: 30 / F ADM Date: 01/08/21 Loc: ED Attending Dr: Ordering Physician: VALERIY LESLIE MD Date of Service: 01/08/21 Procedure(s): XR chest routine 2V Accession Number(s): [id number] cc: ED MD MARIAMA Fluoro Time In Minutes: CHEST PA AND LATERAL VIEWS INDICATION: chest pain wit SOB. COMPARISON: 04/05/2019 FINDINGS: Support devices: None Heart: Normal and unchanged Lungs/Pleura: No acute pulmonary or pleural findings. IMPRESSION: 1. No active disease and no interval change. Signer Name: Adriel Garcia MD Signed: 01/08/2021 6:26 AM Workstation Name: [id number] Transcribed By: TM Dictated By: Adriel Garcia MD Electronically Authenticated By: Adriel Garcia MD Signed Date/Time: 01/08/21625 DD/ 4 TD/TT: - Medical Decision Making 30-year-old -Congolese female presents to the emergency room complaining of chest pain with shortness of breath nausea vomiting and cough for the last 2 days. Patient states that the chest pain is sharp and stabbing and was intermittent but now constant since she has been coughing. She states coughing makes it chest pain worse. She admits that she has had diarrhea. And right side pain. Her last Covid test was negative on November 02. She does admit to loss of smell and taste. I discussed with the patient and/or caregiver the rapid rule out protocol to for acute coronary syndrome and myocardial infarction and that given the findings during his ED evaluation, there is no clinical EKG or laboratory evidence of injury to the heart. I further explained that there is no current valuated protocol that can reliable risk stratify a patient into a very low risk category of less than a 1 to 2% possibility of significant cardiac disease. Therefore it remains possible that there is underlying pathology that may develop into a acute coronary syndrome at some point in the future. I discussed this with the patient and/or caregiver at length, as well as the necessary steps that may include follow-up, stress test, cardiac imaging and further lab evaluation for further assessment. The patient and/or caregiver have expressed a clear and thorough understanding and agreed to the follow up as instructed Discharging you with a diagnosis of a viral syndrome. All labs are stable. Tessalon Perles 100 mg p.o. every 8 hours as needed. Tylenol or ibuprofen for pain. I recommend Covid testing. Patient is to follow-up with a primary care provider. Critical care attestation.: If time is entered above; I have spent that time in minutes in the direct care of this critically ill patient, excluding procedure time. ED Disposition Clinical Impression: Viral infection Disposition: DC-01 TO HOME OR SELFCARE Is pt being admited?: No Does the pt Need Aspirin: No Condition: Stable Instructions: Hand Washing, [id number], Viral Respiratory Infection, [id number] Additional Instructions: Your symptoms appear most consistent with a nonspecific viral syndrome. However, given this current pandemic, COVID-19 is in the differential of possibilities. Despite your previous negative COVID-19 test, I do recommend repeat outpatient Covid 19 testing. In the meantime, isolate/quarantine yourself and stay away from anyone who is elderly, immunocompromised or chronically ill. You can use ibuprofen every 6-8 hours and Tylenol every 4-8 hours, using the dosing on the back of the bottle, as needed for any fever or body aches. Return to the emergency department with any worsening of your symptoms, development of chest pain or shortness of breath, or with any acute distress. Prescriptions: Benzonatate [Tessalon Perles] 100 mg PO Q8HR PRN #15 capsule PRN Reason: Cough Referrals: PRIMARY CARE, [Primary Care Provider] - 3-5 Days Forms: Work/School Release Form(ED) Heart Score - HEART Score History: Slightly suspicious EKG: Normal Age: < 45 Risk factors: No known risk factors Troponin: < normal limit HEART Score: 0
--- NOTE | 2021-01-12 10:08 | Electrocardiograph Report ---
[facility] Test Date: 2021-01-08 Test Time: 05:05:34 Pat Name: BI CORTEZ Department: Room: Gender: F Volunteer Coordinator: PAUL : 1990 Requested By: ZAIRA COPELAND Order Number: [id number] Reading MD: Carlton Victoria Measurements Intervals [place] Rate: 78 P: 62 RI: 159 QRS: 20 QRSD: 82 T: 0 QT: 361 QTc: 412 Interpretive Statements Sinus rhythm No previous ECG available for comparison Electronically Signed On 01-12-2021 10:08:22 EDT by Carlton Victoria
== END 2021-01-08 08:44 | disposition home or self-care (01) ==
LOC: ED 04:25
DX: B34.9 Viral infection, unspecified (principal); F17.200 Nicotine dependence, unspecified, uncomplicated; Z79.899 Other long term (current) drug therapy; Z88.0 Allergy status to penicillin; Z98.890 Other specified postprocedural states
CPT/HCPCS: 36415; 71046; 80053; 84703; 85025; 93005

== ENCOUNTER 2021-05-02 09:28 | Emergency (ER) | payer OTHER, SELFPAY ==
[2021-05-02 11:14] LABS: Hematocrit 37.5 % (30.3-42.9); Hemoglobin 12.9 gm/dl (10.1-14.3); Mean Corpuscular HGB Conc 35 % (30-34); Mean Corpuscular Volume 98 fl (79-97); Platelet Count 117 K/mm3 (140-440); Red Blood Count 3.84 M/mm3 (3.65-5.03); Red Cell Distribution Width 12.7 % (13.2-15.2)
[2021-05-02] MEDS ORDERED: SODIUM CHLORIDE 0.9% 1000 ML 1,000 ML IV ONE (11:43)
[2021-05-02 11:51] LABS: Alanine Aminotransferase 18 units/L (7-56); BUN/Creatinine Ratio 11; Blood Urea Nitrogen 10 mg/dL (7-17); Calcium 9.2 mg/dL (8.4-10.2); Hemolysis Index 8
[2021-05-02 12:00] LABS: Bilirubin,Direct < 0.2 mg/dL (0-0.2)
[2021-05-02 12:06] LABS: Total Cells Counted 100
[2021-05-02 12:07] LABS: Platelet Estimate Consistent w Auto; RBC Morphology Normal
--- NOTE | 2021-05-02 13:03 | Emergency Department Report ---
HPI - General Chief Complaint: Dyspnea/Respdistress Time Seen by Provider: 05/02/21 10:31 - HPI HPI: 30-year-old female presents complaining of approximately 1 week of headache and shortness of breath. The patient states that she tested positive for Covid yesterday. She says she has had a global headache which is pressure-like, feeling like a band around her head. She also says that she feels very short of breath and has had a mild tight feeling in her chest for the past 2 days. The tightness in her chest is no pain but pressure, and it is nonradiating. She denies any other associated symptoms whatsoever. There are no known aggravating or alleviating factors. Of note, the patient's nurse told me that when she asked the patient why she was here the patient replied "because I have a headache and I need high school social studies tutor because I have nowhere to stay." When asked if the primary reason was because of not having anywhere to stay she said yes but that she also has a very bad headache. When I asked the patient she did state that she needs high school social studies tutor because she has nowhere to stay and is chronically homeless. But she says this is not the reason that she came to the ER today. ED Past Medical Hx - Past Medical History Hx Hypertension: No Hx Congestive Heart Failure: No Hx Diabetes: No Hx Deep Vein Thrombosis: No Hx Renal Disease: No Hx Sickle Cell Disease: No Hx Seizures: No Hx Asthma: No Hx COPD: No Hx HIV: No Additional medical history: bells palsy, herpes HEART PROBLEMS - Surgical History Additional Surgical History: Ectopic pregancy with Fallopian tube removal - Social History Smoking Status: Current Every Day Smoker Substance Use Type: None - Medications Home Medications: Home Medications Medication Instructions Recorded Confirmed Last Taken Type Albuterol Mdi (or & Nicu Only) 2 puff IH QID PRN #1 inhalation 09/26/16 Unknown Rx [Proair] Azithromycin [Zithromax Z-CAROL] 250 mg PO DAILY #6 tab 09/26/16 Unknown Rx Ibuprofen [Motrin] 600 mg PO Q8H PRN #15 tablet 09/26/16 Unknown Rx guaiFENesin DM [Robitussin Dm] 10 ml PO Q6HR PRN #200 ml 09/26/16 Unknown Rx predniSONE [Deltasone] 50 mg PO QDAY #5 tablet 09/26/16 Unknown Rx Hydrocortisone 0.5% (Nf) 1 applicatio TP TID #1 tube 02/26/18 Unknown Rx [Hydrocortisone 0.5% OINT] cephALEXin [Keflex] 500 mg PO Q12HR #10 cap 02/26/18 Unknown Rx hydrOXYzine HCL [Atarax] 25 mg PO QHS #20 tablet 02/26/18 Unknown Rx Metoclopramide [Reglan] 10 mg PO TID PRN #30 tab 07/25/18 Unknown Rx Nitrofurantoin Monohyd/M-Cryst 100 mg PO BID #14 capsule 07/25/18 Unknown Rx [Macrobid 100 mg Capsule] Vit Calc,Iron,Folic 1 each PO QDAY #30 tablet 07/25/18 Unknown Rx [ Vitamins] HYDROcodone/APAP 5-325 [Neon 1 each PO Q6HR PRN #20 tablet 02/24/19 Unknown Rx 5/325] Ibuprofen [Motrin] 800 mg PO Q8HR PRN #30 tablet 02/24/19 Unknown Rx Acetaminophen [Mapap] 500 mg PO QID PRN #30 capsule 04/05/19 Unknown Rx Benzonatate [Tessalon Perles] 100 mg PO Q8HR PRN #15 capsule 01/08/21 Unknown Rx ED Review of Systems ROS: Stated complaint: HAVE COVID, HEAD HURTS, CHEST PAIN Other details as noted in HPI Constitutional: fever. denies: chills Eyes: denies: eye pain, vision change ENT: denies: throat pain, congestion Respiratory: shortness of breath Cardiovascular: other (chest tightness). denies: palpitations, edema, syncope Gastrointestinal: denies: abdominal pain, nausea, vomiting Genitourinary: denies: dysuria, frequency Musculoskeletal: denies: back pain, joint swelling Skin: denies: rash Neurological: headache. denies: weakness, numbness, paresthesias Physical Exam - Physical Exam Vital Signs: Vital Signs 05/02/21 05/02/21 05/02/21 09:35 10:20 10:30 Temperature 99.6 F Pulse Rate 95 H Respiratory 28 H Rate Blood Pressure 120/79 O2 Sat by Pulse 97 95 97 Oximetry 05/02/21 05/02/21 05/02/21 10:46 10:52 11:00 Temperature Pulse Rate Respiratory Rate Blood Pressure O2 Sat by Pulse 98 99 98 Oximetry 05/02/21 05/02/21 05/02/21 11:15 11:31 11:49 Temperature Pulse Rate 93 H 83 82 Respiratory 17 23 19 Rate Blood Pressure 129/107 125/73 125/73 O2 Sat by Pulse 100 98 92 Oximetry 05/02/21 05/02/21 05/02/21 12:01 12:15 12:31 Temperature Pulse Rate 76 78 85 Respiratory 23 26 H 40 H Rate Blood Pressure 125/73 125/73 100/66 O2 Sat by Pulse 97 96 100 Oximetry 05/02/21 12:45 Temperature Pulse Rate 79 Respiratory 38 H Rate Blood Pressure 100/66 O2 Sat by Pulse 96 Oximetry General: GENERAL: Well developed and well nourished. In moderate distress HEAD: Normocephalic. No obvious signs of trauma. ENT: Moist mucous membranes. EYES: Extraocular movements are intact. Pupils are equal round and reactive to light bilaterally NECK: Supple. Full ROM is intact. Trachea is midline. LUNGS: Hyperventilating. Equal chest rise bilaterally. Clear to auscultation bilaterally. CARDIOVASCULAR: Regular rate and rhythm. No murmurs or rubs. VASCULAR: Cap refill < 2 seconds ABDOMEN: Abdomen is soft and nondistended. There is no significant tenderness, guarding or rebound. SKIN: Skin is warm and dry NEURO: Patient is awake, alert, and oriented. steak sauce maker II-XII grossly intact. No focal deficits. Normal motor and sensory exam throughout. Normal speech. MUSCULOSKELETAL: No obvious deformities. No significant tenderness. Normal ROM throughout. BACK/SPINE: No midline tenderness or step-offs of the C/T/L spine. No costovertebral angle tenderness. ED Course Vital Signs 05/02/21 05/02/21 05/02/21 09:35 10:20 10:30 Temperature 99.6 F Pulse Rate 95 H Respiratory 28 H Rate Blood Pressure 120/79 O2 Sat by Pulse 97 95 97 Oximetry 05/02/21 05/02/21 05/02/21 10:46 10:52 11:00 Temperature Pulse Rate Respiratory Rate Blood Pressure O2 Sat by Pulse 98 99 98 Oximetry 05/02/21 05/02/21 05/02/21 11:15 11:31 11:49 Temperature Pulse Rate 93 H 83 82 Respiratory 17 23 19 Rate Blood Pressure 129/107 125/73 125/73 O2 Sat by Pulse 100 98 92 Oximetry 05/02/21 05/02/21 05/02/21 12:01 12:15 12:31 Temperature Pulse Rate 76 78 85 Respiratory 23 26 H 40 H Rate Blood Pressure 125/73 125/73 100/66 O2 Sat by Pulse 97 96 100 Oximetry 05/02/21 12:45 Temperature Pulse Rate 79 Respiratory 38 H Rate Blood Pressure 100/66 O2 Sat by Pulse 96 Oximetry ED Medical Decision Making - Lab Data Result diagrams: 05/02/21 10:49 05/02/21 12:20 Lab Results 05/02/21 05/02/21 05/02/21 Range/Units 10:49 10:49 10:49 WBC 2.4 L (4.5-11.0) K/mm3 RBC 3.84 (3.65-5.03) M/mm3 Hgb 12.9 (10.1-14.3) gm/dl Hct 37.5 (30.3-42.9) % MCV 98 H (79-97) fl MCH 34 H (28-32) pg MCHC 35 H (30-34) % RDW 12.7 L (13.2-15.2) % Plt Count 117 L (140-440) K/mm3 [place] % (Auto) Chief Internal Auditor Add Manual Diff Complete Total Counted 100 Seg Neuts % (Manual) 50.0 (40.0-70.0) % Lymphocytes % (Manual) 34.0 (13.4-35.0) % Reactive Lymphs % (Man) 1.0 % Monocytes % (Manual) 15.0 H (0.0-7.3) % Nucleated RBC % Not Reportable Seg Neutrophils # Man 1.2 L (1.8-7.7) K/mm3 Band Neutrophils # 0.0 K/mm3 Lymphocytes # (Manual) 0.8 L (1.2-5.4) K/mm3 Abs React Lymphs (Man) 0.0 K/mm3 Monocytes # (Manual) 0.4 (0.0-0.8) K/mm3 Eosinophils # (Manual) 0.0 (0.0-0.4) K/mm3 Basophils # (Manual) 0.0 (0.0-0.1) K/mm3 Metamyelocytes # 0.0 K/mm3 Myelocytes # 0.0 K/mm3 Promyelocytes # 0.0 K/mm3 Blast Cells # 0.0 K/mm3 WBC Morphology Not Reportable Hypersegmented Neuts Not Reportable Hyposegmented Neuts Not Reportable Hypogranular Neuts Not Reportable Smudge Cells Not Reportable Toxic Granulation Not Reportable Toxic Vacuolation Not Reportable Dohle Bodies Not Reportable Pelger-Huet Anomaly Not Reportable Eliud Rods Not Reportable Platelet Estimate Consistent w auto Clumped Platelets Not Reportable Plt Clumps, EDTA Not Reportable Large Platelets Not Reportable Giant Platelets Not Reportable Platelet Satelliting Not Reportable Plt Morphology Comment Not Reportable RBC Morphology Normal Dimorphic RBCs Not Reportable Polychromasia Not Reportable Hypochromasia Not Reportable Poikilocytosis Not Reportable Anisocytosis Not Reportable Microcytosis Not Reportable Macrocytosis Not Reportable Spherocytes Not Reportable Pappenheimer Bodies Not Reportable Sickle Cells Not Reportable Target Cells Not Reportable Tear Drop Cells Not Reportable Ovalocytes Not Reportable Helmet Cells Not Reportable [place] Port Bodies Not Reportable [place] Rings Not Reportable Lotus Cells Not Reportable Bite Cells Not Reportable Crenated Cell Not Reportable Elliptocytes Not Reportable Acanthocytes (Spur) Not Reportable Rouleaux Not Reportable Hemoglobin C Crystals Not Reportable Schistocytes Not Reportable Malaria parasites Not Reportable Jeanmarie Bodies Not Reportable Hem Pathologist Commnt No D-Dimer (0-234) ng/mlDDU Sodium 138 (137-145) mmol/L Potassium 3.8 (3.6-5.0) mmol/L Chloride 100.4 (98-107) mmol/L Carbon Dioxide 24 (22-30) mmol/L Anion Gap 17 mmol/L BUN 10 (7-17) mg/dL Creatinine 0.9 (0.6-1.2) mg/dL Estimated GFR > 60 ml/min BUN/Creatinine Ratio 11 % Glucose 105 H (65-100) mg/dL Lactic Acid (0.7-2.0) mmol/L Calcium 9.2 (8.4-10.2) mg/dL Ferritin (10.0-200.0) ng/mL Total Bilirubin 0.50 (0.1-1.2) mg/dL Direct Bilirubin < 0.2 (0-0.2) mg/dL Indirect Bilirubin 0.3 mg/dL AST 36 (5-40) units/L ALT 18 (7-56) units/L Alkaline Phosphatase 58 (35-129) units/L Lactate Dehydrogenase (91-180) units/L C-Reactive Protein (0.00-1.30) mg/dL Total Protein 7.4 (6.3-8.2) g/dL Albumin 4.0 (3.9-5) g/dL Albumin/Globulin Ratio 1.2 % Procalcitonin (<0.15) ng/mL HCG, Qual Negative (Negative) 05/02/21 05/02/21 05/02/21 Range/Units 12:20 12:20 12:20 WBC (4.5-11.0) K/mm3 RBC (3.65-5.03) M/mm3 Hgb (10.1-14.3) gm/dl Hct (30.3-42.9) % MCV (79-97) fl MCH (28-32) pg MCHC (30-34) % RDW (13.2-15.2) % Plt Count (140-440) K/mm3 [place] % (Auto) Add Manual Diff Total Counted Seg Neuts % (Manual) (40.0-70.0) % Lymphocytes % (Manual) (13.4-35.0) % Reactive Lymphs % (Man) % Monocytes % (Manual) (0.0-7.3) % Nucleated RBC % Seg Neutrophils # Man (1.8-7.7) K/mm3 Band Neutrophils # K/mm3 Lymphocytes # (Manual) (1.2-5.4) K/mm3 Abs React Lymphs (Man) K/mm3 Monocytes # (Manual) (0.0-0.8) K/mm3 Eosinophils # (Manual) (0.0-0.4) K/mm3 Basophils # (Manual) (0.0-0.1) K/mm3 Metamyelocytes # K/mm3 Myelocytes # K/mm3 Promyelocytes # K/mm3 Blast Cells # K/mm3 WBC Morphology Hypersegmented Neuts Hyposegmented Neuts Hypogranular Neuts Smudge Cells Toxic Granulation Toxic Vacuolation Dohle Bodies Pelger-Huet Anomaly Eliud Rods Platelet Estimate Clumped Platelets Plt Clumps, EDTA Large Platelets Giant Platelets Platelet Satelliting Plt Morphology Comment RBC Morphology Dimorphic RBCs Polychromasia Hypochromasia Poikilocytosis Anisocytosis Microcytosis Macrocytosis Spherocytes Pappenheimer Bodies Sickle Cells Target Cells Tear Drop Cells Ovalocytes Helmet Cells [place] Port Bodies [place] Rings Lotus Cells Bite Cells Crenated Cell Elliptocytes Acanthocytes (Spur) Rouleaux Hemoglobin C Crystals Schistocytes Malaria parasites Jeanmarie Bodies Hem Pathologist Commnt D-Dimer 247.74 H (0-234) ng/mlDDU Sodium (137-145) mmol/L Potassium (3.6-5.0) mmol/L Chloride (98-107) mmol/L Carbon Dioxide (22-30) mmol/L Anion Gap mmol/L BUN (7-17) mg/dL Creatinine (0.6-1.2) mg/dL Estimated GFR ml/min BUN/Creatinine Ratio % Glucose 85 (65-100) mg/dL Lactic Acid 0.80 (0.7-2.0) mmol/L Calcium (8.4-10.2) mg/dL Ferritin (10.0-200.0) ng/mL Total Bilirubin (0.1-1.2) mg/dL Direct Bilirubin (0-0.2) mg/dL Indirect Bilirubin mg/dL AST (5-40) units/L ALT (7-56) units/L Alkaline Phosphatase (35-129) units/L Lactate Dehydrogenase 180 (91-180) units/L C-Reactive Protein 0.60 (0.00-1.30) mg/dL Total Protein (6.3-8.2) g/dL Albumin (3.9-5) g/dL Albumin/Globulin Ratio % Procalcitonin (<0.15) ng/mL HCG, Qual (Negative) 05/02/21 05/02/21 Range/Units 12:20 12:20 WBC (4.5-11.0) K/mm3 RBC (3.65-5.03) M/mm3 Hgb (10.1-14.3) gm/dl Hct (30.3-42.9) % MCV (79-97) fl MCH (28-32) pg MCHC (30-34) % RDW (13.2-15.2) % Plt Count (140-440) K/mm3 [place] % (Auto) Add Manual Diff Total Counted Seg Neuts % (Manual) (40.0-70.0) % Lymphocytes % (Manual) (13.4-35.0) % Reactive Lymphs % (Man) % Monocytes % (Manual) (0.0-7.3) % Nucleated RBC % Seg Neutrophils # Man (1.8-7.7) K/mm3 Band Neutrophils # K/mm3 Lymphocytes # (Manual) (1.2-5.4) K/mm3 Abs React Lymphs (Man) K/mm3 Monocytes # (Manual) (0.0-0.8) K/mm3 Eosinophils # (Manual) (0.0-0.4) K/mm3 Basophils # (Manual) (0.0-0.1) K/mm3 Metamyelocytes # K/mm3 Myelocytes # K/mm3 Promyelocytes # K/mm3 Blast Cells # K/mm3 WBC Morphology Hypersegmented Neuts Hyposegmented Neuts Hypogranular Neuts Smudge Cells Toxic Granulation Toxic Vacuolation Dohle Bodies Pelger-Huet Anomaly Eliud Rods Platelet Estimate Clumped Platelets Plt Clumps, EDTA Large Platelets Giant Platelets Platelet Satelliting Plt Morphology Comment RBC Morphology Dimorphic RBCs Polychromasia Hypochromasia Poikilocytosis Anisocytosis Microcytosis Macrocytosis Spherocytes Pappenheimer Bodies Sickle Cells Target Cells Tear Drop Cells Ovalocytes Helmet Cells [place] Port Bodies [place] Rings Lotus Cells Bite Cells Crenated Cell Elliptocytes Acanthocytes (Spur) Rouleaux Hemoglobin C Crystals Schistocytes Malaria parasites Jeanmarie Bodies Hem Pathologist Commnt D-Dimer (0-234) ng/mlDDU Sodium (137-145) mmol/L Potassium (3.6-5.0) mmol/L Chloride (98-107) mmol/L Carbon Dioxide (22-30) mmol/L Anion Gap mmol/L BUN (7-17) mg/dL Creatinine (0.6-1.2) mg/dL Estimated GFR ml/min BUN/Creatinine Ratio % Glucose (65-100) mg/dL Lactic Acid (0.7-2.0) mmol/L Calcium (8.4-10.2) mg/dL Ferritin 333.8 H (10.0-200.0) ng/mL Total Bilirubin (0.1-1.2) mg/dL Direct Bilirubin (0-0.2) mg/dL Indirect Bilirubin mg/dL AST (5-40) units/L ALT (7-56) units/L Alkaline Phosphatase (35-129) units/L Lactate Dehydrogenase (91-180) units/L C-Reactive Protein (0.00-1.30) mg/dL Total Protein (6.3-8.2) g/dL Albumin (3.9-5) g/dL Albumin/Globulin Ratio % Procalcitonin < 0.05 (<0.15) ng/mL HCG, Qual (Negative) - EKG Data -: EKG Interpreted by Me - EKG Data 05/02/21 13:10 Normal sinus rhythm. Normal intervals. No ectopy. Poor R wave progression. No significant ST segment or T wave abnormalities. - Radiology Data CTA CHEST WITH CONTRAST INDICATION : rule out PE,100ML OF OMNI 350 GIVEN, Chest pain 1x week. TECHNIQUE: Axial imaging performed through the chest, with contra st bolus timing set to maximize opacification of the pulmonary arteries. Sagittal and coronal reformatted images. 3-plane MIP reformatted images were obtained. All CT scans at this location are performed using CT dose reduction for ALARA by means of automated exposure control. 100 mL of intravenous contrast administered. COMPARISON: Chest x-ray 01/08/2021 FINDINGS: Bolus: Contrast bolus timing is adequate. PTE: No filling defect is present to suggest PTE. Mediastinum: Heart and great vessels appear normal. No pathologic mediastinal adenopathy. Lungs: There are a pattern focal groundglass airspace opacities in the right upper lobe and both lower lobes. Minor segmental atelectasis is also noted in both lower lobes. No mass, pleural effusion or pneumothorax. Bones: No significant abnormality. Upper abdomen: Limited images of the upper abdomen demonstrate a 3.3 cm low-density lesion in the superior left kidney which probably represents a cyst. IMPRESSION: No evidence for pulmonary embolus. Scattered subtle groundglass airspace opacities as described. This is a nonspecific finding but is concerning for viral infection. Please correlate with the patient's clinical presentation. Signer Name: Bill Alvaardo Jr, MD Signed: 05/02/2021 2:25 PM Workstation Name: [id number] - Medical Decision Making 30-year-old female recently diagnosed with Covid yesterday who presents with global pressure-like headache and shortness of breath with some chest tightness for the past 2 days. Patient is seen in moderate respiratory distress and hyperventilating although all of her other vital signs are within normal limits. Her oxygen saturation is within normal limits on room air. Lung auscultation reveals clear breath sounds throughout. There are no other significant findings on physical exam. Nonetheless we will perform work-up with labs, EKG, and chest x-ray will give aspirin and 1 L of IV fluids On repeat assessment at 11:30 AM, the patient is profoundly tachypneic still. Her oxygen saturation remains normal. She is not tachycardic. Labs have pa rtially resulted and reveal leukopenia with white blood cell count of 2.4, which could be the result of COVID-19 infection. Nonetheless we will send to sepsis labs and cultures as well as the COVID-19 order set which includes a D-dimer. Her Wells PE score is 0 and therefore low risk. A repeat assessment again at 1:30 PM, the patient is sleeping in the bed but when she awakes she begins hyperventilating punching me in the room. She states that she still has a headache but denies chest pain. CTA of the chest shows evidence of COVID-19 infection but no evidence of pulmonary embolism. Patient's vital signs remain within normal limits. I went and spoke to the patient regarding the results and she is no longer hyperventilating. Her symptoms are improved. She is not tachycardic. She is not hypoxic. I personally counted her respiratory rate and it was 18. I encouraged her to try to quarantine/isolate for the next 10 days and to stay hydrated. She asked me about speaking to the social work administrator about housing again. I conveyed this to the charge nurse who says that the social work administrator will come and speak to her. I will discharge the patient home with primary care follow-up as needed and return precautions Critical Care Time: Yes Critical care time in (mins) excluding proc time.: 40 Critical care attestation.: If time is entered above; I have spent that time in minutes in the direct care of this critically ill patient, excluding procedure time. Critical care time was spent in the evaluation, assessment, work-up, and management of persistent hyperventilation and shortness of breath requiring advanced work-up, IV fluids, IV medications, and multiple reassessments. ED Disposition Clinical Impression: Pneumonia due to COVID-19 virus, Leukopenia Disposition: DC-01 TO HOME OR SELFCARE Is pt being admited?: No Condition: Stable Instructions: COVID-19 Frequently Asked Questions, COVID-19, Prevent the Spread of COVID-19 if You Are Sick - CDC, Bacterial Pneumonia (ED) Additional Instructions: Please quarantine and keep your mask on and your distance from other people for at least 10 days from when your symptoms started. If you are able to purchase a pulse oximeter please do so to measure your oxygen saturation. If your oxygen saturation drops below 93% please return to the emergency department. Return to the emergency department for any significantly worsening symptoms or new concerns. Referrals: [facility] [Provider Group] - 3-5 Days PRIMARY CARE,MD [Primary Care Provider] - 3-5 Days
[2021-05-02 13:16] LABS: C-Reactive Protein 0.6 mg/dL (0.00-1.30)
[2021-05-02] MEDS ORDERED: KETOROLAC 30 MG/1 ML INJ IV ONE (13:51)
[2021-05-02 14:09] VITALS: BP 108/80
--- NOTE | 2021-05-02 15:30 | Cat Scan Report ---
CTA CHEST WITH CONTRAST INDICATION : rule out PE,100ML OF OMNI 350 GIVEN, Chest pain 1x week. TECHNIQUE: Axial imaging performed through the chest, with contrast bolus timing set to maximize opa cification of the pulmonary arteries. Sagittal and coronal reformatted images. 3-plane MIP reformatte d images were obtained. All CT scans at this location are performed using CT dose reduction for ALAR A by means of automated exposure control. 100 mL of intravenous contrast administered. COMPARISON: Chest x-ray 01/08/2021 FINDINGS: Bolus: Contrast bolus timing is adequate. PTE: No filling defect is present to suggest PTE. Mediastinum: Heart and great vessels appear normal. No pathologic mediastinal adenopathy. Lungs: There are a pattern focal groundglass airspace opacities in the right upper lobe and both low er lobes. Minor segmental atelectasis is also noted in both lower lobes. No mass, pleural effusion or pneumothorax. Bones: No significant abnormality. Upper abdomen: Limited images of the upper abdomen demonstrate a 3.3 cm low-density lesion in the vega perior left kidney which probably represents a cyst. IMPRESSION: No evidence for pulmonary embolus. Scattered subtle groundglass airspace opacities as described. This is a nonspecific finding but is co ncerning for viral infection. Please correlate with the patient's clinical presentation. Signer Name: Bill Alvarado Jr, MD Signed: 05/02/2021 3:25 PM Workstation Name: [id number]
--- NOTE | 2021-05-03 03:38 | XRay Report ---
CHEST 2 VIEWS INDICATION / CLINICAL INFORMATION: SOB. COMPARISON: None available. FINDINGS: SUPPORT DEVICES: None. HEART / MEDIASTINUM: No significant abnormality. LUNGS / PLEURA: There is patchy airspace opacity in the right mid and lower lung zone. No pneumothora x. ADDITIONAL FINDINGS: No significant additional findings. IMPRESSION: 1. There is patchy airspace opacity in the right mid and lower lung zone. Signer Name: David Vogel MD Signed: 05/03/2021 3:33 AM Workstation Name: [id number]
--- NOTE | 2021-05-03 12:24 | Electrocardiograph Report ---
[facility] Test Date: 2021-05-02 Test Time: 11:03:35 Pat Name: BI CORTEZ Department: Room: Gender: F Transportation Engineering Technician: ESME : 1990 Requested By: JOHN HAYES Order Number: [id number] Reading MD: Carlton Victoria Measurements Intervals [place] Rate: 71 P: 57 NH: 140 QRS: 41 QRSD: 80 T: 16 QT: 351 QTc: 381 Interpretive Statements Sinus rhythm Compared to ECG 01/08/2021 05:05:34 No significant changes Electronically Signed On 05-03-2021 12:24:00 EDT by Carlton Victoria
== END 2021-05-02 16:04 | disposition home or self-care (01) ==
LOC: ED 09:28
DX: U07.1 COVID-19 (principal); J12.82 Pneumonia due to coronavirus disease 2019; D72.819 Decreased white blood cell count, unspecified; F17.200 Nicotine dependence, unspecified, uncomplicated; Z79.899 Other long term (current) drug therapy
CPT/HCPCS: 36415; 71046; 71275; 80048; 80076; 82140; 82728; 82947; 83615; 84145; 84703; 85007; 85025; 85379; 86140; 87040; 93005; 96361; 96374; 99284; J1885; J7030; Q9967

== ENCOUNTER 2022-07-04 14:49 | Emergency (ER) | payer OTHER ==
--- NOTE | 2022-07-04 17:18 | XRay Report ---
CHEST 2 VIEWS INDICATION / CLINICAL INFORMATION: Chest Pain. COMPARISON: 05/02/21 FINDINGS: SUPPORT DEVICES: None. HEART / MEDIASTINUM: No significant abnormality. LUNGS / PLEURA: No significant pulmonary or pleural abnormality. No pneumothorax. ADDITIONAL FINDINGS: No significant additional findings. IMPRESSION: 1. No acute findings. Signer Name: Julio Cesar Mills MD Signed: 07/04/2022 5:14 PM Workstation Name: [email or web address]
[2022-07-04 17:22] LABS: Basophils % (Auto) 0.7 % (0.0-1.8); Eosinophils # (Auto) 0.1 K/mm3 (0.0-0.4); Eosinophils % (Auto) 0.9 % (0.0-4.3); Hematocrit 36.8 % (30.3-42.9); Hemoglobin 12.7 gm/dl (10.1-14.3); Lymphocytes # (Auto) 2.1 K/mm3 (1.2-5.4); Lymphocytes % (Auto) 30.9 % (13.4-35.0); Mean Corpuscular HGB Conc 34 % (30-34); Mean Corpuscular Volume 99 fl (79-97); Monocytes # (Auto) 0.7 K/mm3 (0.0-0.8); Monocytes % (Auto) 9.8 % (0.0-7.3); Platelet Count 205 K/mm3 (140-440); Red Blood Count 3.72 M/mm3 (3.65-5.03); Red Cell Distribution Width 13.1 % (13.2-15.2)
[2022-07-04 17:59] LABS: Alanine Aminotransferase 11 units/L (7-56); Albumin 4.6 g/dL (3.9-5); Blood Urea Nitrogen 12 mg/dL (7-17); Calcium 9.2 mg/dL (8.4-10.2); Hemolysis Index 11
[2022-07-04 18:09] LABS: BUN/Creatinine Ratio 17
[2022-07-04] MEDS ORDERED: IBUPROFEN 800 MG TAB PO ONE (21:14)
--- NOTE | 2022-07-04 23:58 | Emergency Department Report ---
ED Chest Pain HPI - General Chief Complaint: Chest Pain Stated Complaint: SICK Time Seen by Provider: 07/04/22 21:12 Source: EMS Mode of arrival: Stretcher Limitations: No Limitations - History of Present Illness Initial Comments: Is a 31-year-old female who presents for flank pain radiating to epigastric. With dysuria frequency and urgency. Patient denies fevers or chills. Symptoms are exacerbated by voiding movement and activity. Symptoms are relieved by nothing tried patient denies last menstrual cycle 2 weeks ago. Generalized pain is rated at 4/10 at this time. MD Complaint: chest pain Severity scale (0 -10): 7 - Related Data Previous Rx's Medication Instructions Recorded Last Taken Type Albuterol Mdi (or & Nicu Only) 2 puff IH QID PRN #1 inhalation 09/26/16 Unknown Rx [Proair] Azithromycin [Zithromax Z-CAROL] 250 mg PO DAILY #6 tab 09/26/16 Unknown Rx Ibuprofen [Motrin] 600 mg PO Q8H PRN #15 tablet 09/26/16 Unknown Rx guaiFENesin DM [Robitussin Dm] 10 ml PO Q6HR PRN #200 ml 09/26/16 Unknown Rx predniSONE [Deltasone] 50 mg PO QDAY #5 tablet 09/26/16 Unknown Rx Hydrocortisone 0.5% (Nf) 1 applicatio TP TID #1 tube 02/26/18 Unknown Rx [Hydrocortisone 0.5% OINT] cephALEXin [Keflex] 500 mg PO Q12HR #10 cap 02/26/18 Unknown Rx hydrOXYzine HCL [Atarax] 25 mg PO QHS #20 tablet 02/26/18 Unknown Rx Metoclopramide [Reglan] 10 mg PO TID PRN #30 tab 07/25/18 Unknown Rx Nitrofurantoin Monohyd/M-Cryst 100 mg PO BID #14 capsule 07/25/18 Unknown Rx [Macrobid 100 mg Capsule] Vit Calc,Iron,Folic 1 each PO QDAY #30 tablet 07/25/18 Unknown Rx [ Vitamins] HYDROcodone/APAP 5-325 [[place] 1 each PO Q6HR PRN #20 tablet 02/24/19 Unknown Rx 5/325] Ibuprofen [Motrin] 800 mg PO Q8HR PRN #30 tablet 02/24/19 Unknown Rx Acetaminophen [Mapap] 500 mg PO QID PRN #30 capsule 04/05/19 Unknown Rx Benzonatate [Tessalon Perles] 100 mg PO Q8HR PRN #15 capsule 01/08/21 Unknown Rx Fluconazole [Diflucan TAB] 200 mg PO QDAY #1 tablet 07/05/22 Unknown Rx cephALEXin [Keflex] 500 mg PO Q12HR 3 Days #6 cap 07/05/22 Unknown Rx Allergies Allergy/AdvReac Type Severity Reaction Status Date / Time No Known Allergies Allergy Verified 07/04/22 15:57 Heart Score - HEART Score History: Slightly suspicious EKG: Normal Age: < 45 Risk factors: No known risk factors Troponin: < normal limit HEART Score: 0 - EKG Read Time Time EKG Completed: 15:55 EKG Read Time: 16:01 (No ST elevated MO interpreted by ED attending.) ED Review of Systems ROS: Stated complaint: SICK Other details as noted in HPI Constitutional: malaise. denies: chills, fever Eyes: denies: eye pain, eye discharge, vision change ENT: denies: ear pain, throat pain Respiratory: no symptoms reported, cough Cardiovascular: chest pain. denies: palpitations, dyspnea on exertion Endocrine: no symptoms reported Gastrointestinal: abdominal pain (Bilateral flank pain), vomiting. denies: nausea, diarrhea, melena Genitourinary: urgency, frequency. denies: dysuria, hematuria, discharge Musculoskeletal: back pain (Bilateral flank radiating to suprapubic). denies: joint swelling, arthralgia Skin: denies: rash, lesions Neurological: denies: headache, weakness, paresthesias, abnormal gait, vertigo Psychiatric: denies: anxiety, depression Hematological/Lymphatic: denies: easy bleeding, easy bruising ED Past Medical Hx - Past Medical History Hx Hypertension: No Hx Congestive Heart Failure: No Hx Diabetes: No Hx Deep Vein Thrombosis: No Hx Renal Disease: No Hx Sickle Cell Disease: No Hx Seizures: No Hx Asthma: No Hx COPD: No Hx HIV: No Additional medical history: bells palsy, herpes HEART PROBLEMS - Surgical History Additional Surgical History: Ectopic pregancy with Fallopian tube removal - Social History Smoking Status: Current Every Day Smoker Substance Use Type: None - Medications Home Medications: Home Medications Medication Instructions Recorded Confirmed Last Taken Type Albuterol Mdi (or & Nicu Only) 2 puff IH QID PRN #1 inhalation 09/26/16 Unknown Rx [Proair] Azithromycin [Zithromax Z-CAROL] 250 mg PO DAILY #6 tab 09/26/16 Unknown Rx Ibuprofen [Motrin] 600 mg PO Q8H PRN #15 tablet 09/26/16 Unknown Rx guaiFENesin DM [Robitussin Dm] 10 ml PO Q6HR PRN #200 ml 09/26/16 Unknown Rx predniSONE [Deltasone] 50 mg PO QDAY #5 tablet 09/26/16 Unknown Rx Hydrocortisone 0.5% (Nf) 1 applicatio TP TID #1 tube 02/26/18 Unknown Rx [Hydrocortisone 0.5% OINT] cephALEXin [Keflex] 500 mg PO Q12HR #10 cap 02/26/18 Unknown Rx hydrOXYzine HCL [Atarax] 25 mg PO QHS #20 tablet 02/26/18 Unknown Rx Metoclopramide [Reglan] 10 mg PO TID PRN #30 tab 07/25/18 Unknown Rx Nitrofurantoin Monohyd/M-Cryst 100 mg PO BID #14 capsule 07/25/18 Unknown Rx [Macrobid 100 mg Capsule] Vit Calc,Iron,Folic 1 each PO QDAY #30 tablet 07/25/18 Unknown Rx [ Vitamins] HYDROcodone/APAP 5-325 [[place] 1 each PO Q6HR PRN #20 tablet 02/24/19 Unknown Rx 5/325] Ibuprofen [Motrin] 800 mg PO Q8HR PRN #30 tablet 02/24/19 Unknown Rx Acetaminophen [Mapap] 500 mg PO QID PRN #30 capsule 04/05/19 Unknown Rx Benzonatate [Tessalon Perles] 100 mg PO Q8HR PRN #15 capsule 01/08/21 Unknown Rx Fluconazole [Diflucan TAB] 200 mg PO QDAY #1 tablet 07/05/22 Unknown Rx cephALEXin [Keflex] 500 mg PO Q12HR 3 Days #6 cap 07/05/22 Unknown Rx ED Physical Exam - General Limitations: No Limitations General appearance: alert, in no apparent distress - Head Head exam: Present: normocephalic, normal inspection - Eye Eye exam: Present: PERRL, EOMI Pupils: Present: normal accommodation - ENT ENT exam: Present: normal orophraynx, mucous membranes moist - Neck Neck exam: Present: normal inspection, full ROM. Absent: tenderness, lymphadenopathy - Respiratory Respiratory exam: Present: normal lung sounds bilaterally. Absent: respiratory distress, wheezes, stridor, chest wall tenderness - Cardiovascular Cardiovascular Exam: Present: regular rate, normal rhythm. Absent: systolic murmur, diastolic murmur, rubs, gallop - GI/Abdominal GI/Abdominal exam: Present: soft, normal bowel sounds. Absent: distended, tenderness, guarding, rebound, rigid, bruit, hernia - Rectal Rectal exam: Present: deferred - Extremities Exam Extremities exam: Present: normal inspection, full ROM, normal capillary refill. Absent: tenderness, pedal edema - Back Exam Back exam: Present: normal inspection, full ROM. Absent: CVA tenderness (R), CVA tenderness (L) - Neurological Exam Neurological exam: Present: alert, oriented X3, CN II-XII intact, normal gait - Psychiatric Psychiatric exam: Present: normal affect, normal mood - Skin Skin exam: Present: warm, dry, intact, normal color. Absent: rash ED Course Vital Signs 07/04/22 15:45 Temperature 96.8 F L Pulse Rate 85 Respiratory 16 Rate Blood Pressure 140/97 [Right] O2 Sat by Pulse 98 Oximetry VALDEMAR score - Valdemar Score Age > 65: (0) No Aspirin use within the Past 7 Days: (0) No 3 or more CAD Risk Factors: (0) No 2 or more Angina events in past 24 hrs: (0) No Known CAD with more than 50% Stenosis: (0) No Elevated Cardiac Markers: (0) No ST Deviation Greater than 0.5mm: (0) No VALDEMAR Score: 0 ED Medical Decision Making - Lab Data Result diagrams: 07/04/22 16:59 07/04/22 16:59 Labs 07/04/22 07/04/22 16:59 16:59 WBC 6.9 RBC 3.72 Hgb 12.7 Hct 36.8 MCV 99 H MCH 34 H MCHC 34 RDW 13.1 L Plt Count 205 Lymph % (Auto) 30.9 [place] % (Auto) 9.8 H Eos % (Auto) 0.9 Baso % (Auto) 0.7 Lymph # (Auto) 2.1 [place] # (Auto) 0.7 Eos # (Auto) 0.1 Baso # (Auto) 0.0 Seg Neutrophils % 57.7 Seg Neutrophils # 4.0 Sodium 139 Potassium 4.0 Chloride 103.1 Carbon Dioxide 25 Anion Gap 15 BUN 12 Creatinine 0.7 Estimated GFR > 60 BUN/Creatinine Ratio 17 Glucose 72 Calcium 9.2 Total Bilirubin 1.30 H AST 20 ALT 11 Alkaline Phosphatase 71 Troponin T < 0.010 Total Protein 7.6 Albumin 4.6 Albumin/Globulin Ratio 1.5 Labs 07/04/22 07/04/22 07/04/22 16:59 16:59 Unknown WBC 6.9 RBC 3.72 Hgb 12.7 Hct 36.8 MCV 99 H MCH 34 H MCHC 34 RDW 13.1 L Plt Count 205 Lymph % (Auto) 30.9 [place] % (Auto) 9.8 H Eos % (Auto) 0.9 Baso % (Auto) 0.7 Lymph # (Auto) 2.1 [place] # (Auto) 0.7 Eos # (Auto) 0.1 Baso # (Auto) 0.0 Seg Neutrophils % 57.7 Seg Neutrophils # 4.0 Sodium 139 Potassium 4.0 Chloride 103.1 Carbon Dioxide 25 Anion Gap 15 BUN 12 Creatinine 0.7 Estimated GFR > 60 BUN/Creatinine Ratio 17 Glucose 72 Calcium 9.2 Total Bilirubin 1.30 H AST 20 ALT 11 Alkaline Phosphatase 71 Troponin T < 0.010 Total Protein 7.6 Albumin 4.6 Albumin/Globulin Ratio 1.5 Urine Color Urine Turbidity Specific [place] (Man) Ur Protein (Man) Ur Ketones (Man) Ur Nitrite (Man) Urine Bilirubin (Man) Leukocyte Esterase (Man) Urine WBC (Auto) Urine RBC (Auto) U Epithel Cells (Auto) Urine Bacteria (Auto) Urine RBC (Manual) Urine Mucus Urine Yeast (Budding) Urine HCG, Qual Negative 07/04/22 Unknown WBC RBC Hgb Hct MCV MCH MCHC RDW Plt Count Lymph % (Auto) [place] % (Auto) Eos % (Auto) Baso % (Auto) Lymph # (Auto) [place] # (Auto) Eos # (Auto) Baso # (Auto) Seg Neutrophils % Seg Neutrophils # Sodium Potassium Chloride Carbon Dioxide Anion Gap BUN Creatinine Estimated GFR BUN/Creatinine Ratio Glucose Calcium Total Bilirubin AST ALT Alkaline Phosphatase Troponin T Total Protein Albumin Albumin/Globulin Ratio Urine Color Yellow Urine Turbidity Cloudy Specific [place] (Man) 1.030 Ur Protein (Man) 1+ Ur Ketones (Man) 1+ Ur Nitrite (Man) Negative Urine Bilirubin (Man) Negative Leukocyte Esterase (Man) Trace Urine WBC (Auto) 4.0 Urine RBC (Auto) 5.0 U Epithel Cells (Auto) 28.0 H Urine Bacteria (Auto) 2+ Urine RBC (Manual) Negative Urine Mucus 2+ Urine Yeast (Budding) Few Urine HCG, Qual - EKG Data EKG shows normal: sinus rhythm, axis, intervals, QRS complexes, ST-T waves Rate: normal - EKG Data Interpretation: normal EKG (Normal sinus rhythm no ST elevated MO interpreted by ED attending) - Radiology Data Radiology results: report reviewed, image reviewed CHEST 2 VIEWS INDICATION / CLINICAL INFORMATION: Chest Pain. COMPARISON: 05/02/21 FINDINGS: SUPPORT DEVICES: None. HEART / MEDIASTINUM: No significant abnormality. LUNGS / PLEURA: No significant pulmonary or pleural abnormality. No pneumothorax. ADDITIONAL FINDINGS: No significant additional findings. IMPRESSION: 1. No acute findings. Signer Name: Julio Cesar Mills MD Signed: 07/04/2022 5:14 PM Workstation Name: [id number] Transcribed By: DT Dictated By: Dexter Mills MD Electronically Authenticated By: Dexter Mills MD Signed Date/Time: 07/04/221713 DD/ 13 TD/TT: - Medical Decision Making Labs noted above nonactionable. Chest x-ray normal infiltration opacities, EKG normal sinus rhythm no ST elevated MO interpreted by ED attending. Heart score is 0. VALDEMAR score is 0. Plan DC to home, NSAIDs as needed pain, follow-up with your primary care doctor in 2 to 3 days. Return to emergency department if symptoms worsen. Patient verbalized agreement and understanding with discharge plan. Patient DC'd to home in stable condition at this time. Critical care attestation.: If time is entered above; I have spent that time in minutes in the direct care of this critically ill patient, excluding procedure time. ED Disposition Clinical Impression: Flank pain Disposition: 01 HOME / SELF CARE / HOMELESS Is pt being admited?: No Does the pt Need Aspirin: No Condition: Stable Instructions: Flank Pain, Adult, [id number] Additional Instructions: Take medications as prescribed, follow-up with your doctor in 2 to 3 days. Return to emergency department for symptoms worsen. Prescriptions: Fluconazole [Diflucan TAB] 200 mg PO QDAY #1 tablet cephALEXin [Keflex] 500 mg PO Q12HR 3 Days #6 cap Referrals: ROMIE ANAND MD [Staff Physician] - 3-5 Days Forms: Work/School Release Form(ED) Time of Disposition: 00:55
[2022-07-05 00:36] LABS: Color,Urine Yellow (Yellow)
[2022-07-05 00:38] LABS: Bacteria,Urine 2+ /HPF (Negative); HCG Qualitative,Urine Negative (Negative); Mucus,Urine 2+ /HPF
[2022-07-05 01:15] VITALS: BP 147/98
--- NOTE | 2022-07-05 10:32 | Electrocardiograph Report ---
[facility] Test Date: 2022-07-04 Test Time: 15:55:41 Pat Name: BI CORTEZ Department: Room: Gender: F [employer]: ELA : 1990 Requested By: ZAIRA COPELAND Order Number: [id number] Reading MD: Kamaljit Torres Measurements Intervals [place] Rate: 85 P: 63 [place]: 138 QRS: 23 QRSD: 84 T: 14 QT: 368 QTc: 437 Interpretive Statements Sinus rhythm Probable left atrial enlargement Compared to ECG 05/02/2021 11:03:35 No significant changes Electronically Signed On 07-05-2022 10:32:23 EDT by Kamaljit Torres
== END 2022-07-05 02:00 | disposition home or self-care (01) ==
LOC: ED 14:49
DX: R10.13 Epigastric pain (principal); F17.200 Nicotine dependence, unspecified, uncomplicated
CPT/HCPCS: 36415; 71046; 80053; 81001; 81025; 84484; 85025; 93005; 99284